=== PATIENT | male | born 2000 | race American Indian/Alaskan Native ===

== ENCOUNTER 2018-01-17 16:33 | Emergency (ER) | payer BC ==
[2018-01-17 16:41] VITALS: BMI 23.8
[2018-01-17 16:44] VITALS: RESP 18
[2018-01-17] MEDS ORDERED: Albuterol-Ipratrop 3 mg / 0.5 (3 ml) UD IH STA (16:50)
[2018-01-17] MEDS ORDERED: Albuterol 0.083% Inhal Sol (2.5 mg/3 mL) UD INH STA (16:51)
--- NOTE | 2018-01-17 16:55 | ED PDOC ---
Arrival/HPI - General Chief Complaint: Cough, Cold, Congestion Time Seen by Provider: 01/17/18 16:39 Historian: Patient - History of Present Illness Narrative History of Present Illness (Text): 01/17/18 16:52 17 y/o male, pmh including bronchitis, nkda, +smoker, c/o coughing/nasal congestion x 3 days with fever started today. Productive coughing, associated with nasal congestion, fever tmax 101F started today, no antipyretic taken at home, no headache or neck stiffness, no abdominal/pelvic pain, no nausea or vomiting, no chills or rash, no other medical or psychological complaints. Past Medical History - Provider Review Nursing Documentation Reviewed: Yes - Infectious Disease Hx of Infectious Diseases: None - Tetanus Immunization Tetanus Immunization: Unknown - Pulmonary Hx Asthma: Yes - Psychiatric Hx Depression: No Hx Emotional Abuse: No Hx Physical Abuse: No Hx Substance Use: No - Past Surgical History Past Surgical History: No Previous - Surgical History Hx Orthopedic Surgery: Yes (r knee) - Anesthesia Hx Anesthesia: Yes Hx Anesthesia Reactions: No Hx Malignant Hyperthermia: No - Suicidal Assessment Feels Threatened In Home Enviroment: No Family/Social History - Physician Review Nursing Documentation Reviewed: Yes Family/Social History: Unknown Family HX Smoking Status: Never Smoked Hx Alcohol Use: No Hx Substance Use: No Hx Substance Use Treatment: No Allergies/Home Meds Allergies/Adverse Reactions: Allergies No Known Allergies Allergy (Verified 07/06/13 10:06) Home Medications: Home Meds Medication Instructions Recorded Confirmed Albuterol HFA [Ventolin HFA 90 1 puff IH PRN PRN 01/17/18 01/17/18 mcg/actuation (8 g)] Review of Systems - Review of Systems Constitutional: Fevers. absent: Fatigue Eyes: absent: Vision Changes ENT: Rhinorrhea. absent: Hearing Changes Respiratory: Cough, Sputum. absent: SOB Cardiovascular: absent: Chest Pain Gastrointestinal: absent: Abdominal Pain, Diarrhea, Nausea, Vomiting Musculoskeletal: absent: Arthralgias, Back Pain Skin: absent: Rash, Pruritis Neurological: absent: Headache, Dizziness Psychiatric: absent: Anxiety, Depression Physical Exam Vital Signs Reviewed: Yes Vital Signs Temp Pulse Resp BP Pulse Ox 01/17/18 18:12 99.3 F 82 18 142/70 98 01/17/18 16:44 100.3 F H 101 H 18 152/75 H 97 Temperature: Febrile Blood Pressure: Hypertensive Pulse: Tachycardic Respiratory Rate: Normal Appearance: Positive for: Well-Appearing, Non-Toxic, Comfortable Pain Distress: None Mental Status: Positive for: Alert and Oriented X 3 - Systems Exam Head: Present: Atraumatic, Normocephalic Pupils: Present: PERRL Extroacular Muscles: Present: EOMI Conjunctiva: Present: Normal Mouth: Present: Moist Mucous Membranes Nose (External): Present: Atraumatic. No: Abrasion, Contusion Nose (Internal): Present: Normal Inspection, No Active Bleeding, Rhinorrhea. No : Septal Deviation, Septal Hematoma, Epistaxis Neck: Present: Normal Range of Motion Respiratory/Chest: Present: Clear to Auscultation, Good Air Exchange, Wheezes ( lower lobes), Rhonchi (LLL). No: Respiratory Distress, Accessory Muscle Use, Retracting, Tachypneic, Tender to Palpation Cardiovascular: Present: Regular Rate and Rhythm, Normal S1, S2. No: Murmurs Abdomen: No: Tenderness, Distention, Peritoneal Signs, Rebound, Guarding Back: Present: Normal Inspection Upper Extremity: Present: Normal Inspection. No: Cyanosis, Edema Lower Extremity: Present: Normal Inspection. No: Edema Neurological: Present: GCS=15, CN II-XII Intact, Speech Normal, Motor Func Grossly Intact, Memory Normal Skin: Present: Warm, Dry, Normal Color. No: Rashes Psychiatric: Present: Alert, Oriented x 3, Normal Insight, Normal Concentration Medical Decision Making ED Course and Treatment: 01/17/18 16:55 -chest xray -duoneb x 2/prednisone 60mg po/zithromax 500mg/motrin -observe and reassess 01/17/18 18:08 -rhonchi resolved, no wheezing, bilaterally lung is clear to auscultate, feeling much better, request to be discharged home. -Discharge home with prednisone, albuterol MDI, zithromax, tessalon, claritin d24, motrin, stay hydrated, follow up with your own pmd and ENT within 2 days, stop smoking, return to the ER for any new or worsening signs or symptoms. - RAD Interpretation Radiology Orders: 01/17/18 16:51 CHEST TWO VIEWS (PA/LAT) [RAD] Stat no active disease Steam Box Hand: Radiologist - Medication Orders Current Medication Orders: Discontinued Medications Acetaminophen (Tylenol 325mg Tab) 650 mg PO STAT STA Stop: 01/17/18 16:51 Last Admin: 01/17/18 17:26 Dose: 650 mg Albuterol Sulfate (Albuterol 0.083% Inhal Aubrie (2.5 Mg/3 Ml) Ud) 2.5 mg INH STAT STA Stop: 01/17/18 16:52 Last Admin: 01/17/18 17:26 Dose: 2.5 mg Albuterol/Ipratropium (Duoneb 3 Mg/0.5 Mg (3 Ml) Ud) 3 ml IH STAT STA Stop: 01/17/18 16:51 Last Admin: 01/17/18 17:26 Dose: 3 ml Azithromycin (Zithromax) 500 mg PO STAT STA PRN Reason: Protocol Stop: 01/17/18 16:56 Last Admin: 01/17/18 17:26 Dose: 500 mg Prednisone (Prednisone Tab) 60 mg PO STAT ONE Stop: 01/17/18 16:51 Last Admin: 01/17/18 17:26 Dose: 60 mg - 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 Disposition/Present on Arrival - Present on Arrival Any Indicators Present on Arrival: No History of DVT/PE: No History of Uncontrolled Diabetes: No Urinary Catheter: No History of Decub. Ulcer: No History Surgical Site Infection Following: None - Disposition Have Diagnosis and Disposition been Completed?: Yes Diagnosis: Bronchitis Disposition: HOME/ ROUTINE Disposition Time: 18:09 Patient Plan: Discharge Condition: IMPROVED Discharge Instructions (ExitCare): Acute Bronchitis Additional Instructions: -Discharge home with prednisone, albuterol MDI, zithromax, tessalon, claritin d24, motrin, stay hydrated, follow up with your own pmd and ENT within 2 days, stop smoking, return to the ER for any new or worsening signs or symptoms. Prescriptions: Albuterol HFA [Ventolin HFA 90 mcg/actuation (8 g)] 2 puff IH [id number] PRN #1 in PRN Reason: Other Azithromycin [Zithromax] 250 mg PO DAILY #4 tab Benzonatate [Tessalon Perles] 200 mg PO TID #30 sgl Ibuprofen [Motrin] 600 mg PO QID PRN #25 tab PRN Reason: Other Loratadine/Pseudoephedrine [Claritin-D 24 Hour Tablet] 1 each PO DAILY #5 tab.er.24h Prednisone 50 mg PO DAILY #4 tab Referrals: [facility] [place] [Outside] - Follow up with primary Forms: WORK NOTE
[2018-01-17 18:13] VITALS: BP 142/70; TEMP 99.3; O2SAT 98
[2018-01-17 18:43] VITALS: PULSE 82
--- NOTE | 2018-01-18 08:59 | RAD ---
HISTORY: cough x 3 days, fever, COMPARISON: No prior. TECHNIQUE: Chest PA and lateral FINDINGS: LUNGS: No active pulmonary disease. PLEURA: No significant pleural effusion identified. No pneumothorax apparent. CARDIOVASCULAR: Normal. OSSEOUS STRUCTURES: No significant abnormalities. VISUALIZED UPPER ABDOMEN: Normal. OTHER FINDINGS: None. IMPRESSION: No active disease.
== END 2018-01-17 18:12 | disposition home or self-care (01) ==
LOC: ED 16:33
DX: J20.9 Acute bronchitis, unspecified (principal)